=== PATIENT | female | born 1975 ===

== ENCOUNTER 2019-02-01 21:08 | Inpatient (IN) ==
[2019-02-01] MEDS ORDERED: ACETAMINOPHEN 325 MG TABLET PO PRN (23:49)
[2019-02-01] MEDS ORDERED: GLUCAGON 1 MG VIAL IM PRN (23:49)
[2019-02-02 00:50] LABS: Hematocrit 27.8 VOL% (35.7-47.0); Hemoglobin 8.6 GM/DL (12.0-16.0); Immature Granulocytes % 1.3 %; Immature Granulocytes Absolute 0.07 #; Lymphocytes # 0.2 10*3/uL (1.4-4.0); Lymphocytes % 3.3 % (21.3-54.2); Mean Corpuscular HGB Conc 30.9 GM/DL (32-36); Mean Corpuscular Hemoglobin 27 PG (27-34); Mean Corpuscular Volume 86.1 FL (87-102); Mean Platelet Volume 11.2 FL (9.6-12.0); Monocytes # 0.2 10*3/uL (0.11-0.8); Monocytes % 3.8 % (1.7-12.7); Neutrophils # 4.8 10*3/uL (1.4-7.4); Neutrophils % 91.6 % (38.7-73.9); Platelet Count 197 T/CUMM (130-400); Red Blood Count 3.23 MC/CUMM (3.8-5.5); Red Cell Distribution Width 17.9 % (9.3-17.3); White Blood Count 5.2 T/CUMM (4-12)
[2019-02-02 01:18] LABS: Band Neutrophils 1 % (0-10); Lymphocytes 4 % (20-55); Promyelocytes 1 %; Segmented Neutrophils 91 % (50-85); Total Cells Counted 100
[2019-02-02 01:20] LABS: Burr Cells 1+; Hypochromasia 1+; Ovalocytes 1+; Platelet Estimate Normal; Polychromasia Few
[2019-02-02 01:23] LABS: Alanine Aminotransferase 19 U/L (13-56); Albumin 2.9 G/DL (3.4-5.0); Alkaline Phosphatase 40 U/L (45-117); Aspartate Amino Transferase 16 U/L (0-37); Bilirubin,Total < 0.39 MG/DL (0.2-1.0); Blood Urea Nitrogen 68 MG/DL (7-18); Calcium 7.7 MG/DL (8.5-10.1); Glucose 96 MG/DL (74-106); Osmolality,Calculated 305.8 MOS/KG (273-304); Potassium 4.7 MMOL/L (3.5-5.1); Sodium 144 MMOL/L (136-145); Total Protein 6.6 G/DL (6.4-8.3)
[2019-02-02] MEDS: FUROSEMIDE 40 MG/4 ML VIAL IV SCH ×2 (03:10→08:43)
[2019-02-02] MEDS: SODIUM POLYSTYRENE SULFATE 15 GM/60 ML BOTTLE PO SCH ×2 (03:51→10:26)
[2019-02-02 04:47] LABS: Apearance,Urine CLEAR (Clear); Bacteria,Urine Occasional /HPF (Few); Bilirubin,Urine Negative (Negative); Blood, Urine Negative (Negative); Glucose,Urine (UA) 150 mg/dL (Negative); Ketones,Urine Negative (Negative); Mucus,Urine Occasional /LPF (Occasional); Nitrite,Urine Negative (Negative); Protein,Urine 100 MG/DL; RBC,Urine 1 /HPF (0-4); Squamous Epithelial Cell,Urine Occasional /HPF (0-10); Urine Color Straw (Yellow); Urine Urobilinogen < 2.0 EU/DL (0.2-1.0); WBC,Urine 3 /HPF (0-6)
[2019-02-02] MEDS: DEXTROSE 50% 25 GM/50 ML SYRINGE IV PRN ×8 (05:51→23:43)
[2019-02-02] MEDS: INSULIN REGULAR 100 UNIT/ML SUBCUT SCH ×3 (08:21→16:14)
[2019-02-02] MEDS: DEXTROSE 10% 500 ML IV SCH (10:21)
[2019-02-02 11:24] LABS: % Iron Saturation 5.1 % (18-50)
[2019-02-02] MEDS: metOLazone 5 MG TABLET PO SCH (11:57)
[2019-02-02] MEDS: FUROSEMIDE 100 MG/10 ML VIAL IV SCH (16:44)
[2019-02-02] MEDS: DEXTROSE IV SCH (19:43)
[2019-02-03] MEDS: DEXTROSE 50% 25 GM/50 ML SYRINGE IV PRN ×3 (03:31→15:50)
[2019-02-03 04:27] LABS: Basophils % 0.2 % (0.0-0.8); Eosinophils # 0.1 10*3/uL (0.0-0.87); Eosinophils % 1.6 % (0.00-10.9); Hematocrit 23.8 VOL% (35.7-47.0); Hemoglobin 7.2 GM/DL (12.0-16.0); Immature Granulocytes % 0.5 %; Immature Granulocytes Absolute 0.03 #; Lymphocytes # 0.5 10*3/uL (1.4-4.0); Lymphocytes % 8.8 % (21.3-54.2); Mean Corpuscular HGB Conc 30.3 GM/DL (32-36); Mean Corpuscular Hemoglobin 26 PG (27-34); Mean Corpuscular Volume 85.6 FL (87-102); Mean Platelet Volume 11.3 FL (9.6-12.0); Monocytes # 0.5 10*3/uL (0.11-0.8); Monocytes % 8.1 % (1.7-12.7); Neutrophils # 4.5 10*3/uL (1.4-7.4); Neutrophils % 80.8 % (38.7-73.9); Platelet Count 175 T/CUMM (130-400); Red Blood Count 2.78 MC/CUMM (3.8-5.5); Red Cell Distribution Width 18.4 % (9.3-17.3); White Blood Count 5.6 T/CUMM (4-12)
[2019-02-03 04:31] LABS: Calcium 6.9 MG/DL (8.5-10.1); Osmolality,Calculated 295.4 MOS/KG (273-304); Potassium 3.9 MMOL/L (3.5-5.1)
[2019-02-03] MEDS: metOLazone 5 MG TABLET PO SCH (09:09)
[2019-02-03] MEDS: FUROSEMIDE 100 MG/10 ML VIAL IV SCH ×2 (09:13→16:22)
[2019-02-03] MEDS: ASPIRIN EC 81 MG TABLET PO SCH (09:14)
[2019-02-03] MEDS: PANTOPRAZOLE 40 MG VIAL IV SCH ×2 (09:49→21:34)
[2019-02-03] MEDS: SODIUM BICARBONATE 650 MG TABLET PO SCH ×2 (09:49→21:35)
[2019-02-03] MEDS: ISOSORBIDE MONONITRATE 30 MG TABLET PO SCH (10:55)
[2019-02-03] MEDS: DEXTROSE 10% 500 ML IV SCH (15:05)
[2019-02-03] MEDS: DEXTROSE IV SCH (15:49)
[2019-02-03] MEDS: hydrALAZINE 25 MG TABLET PO SCH ×2 (16:22→21:34)
[2019-02-04 04:36] LABS: Basophils % 0.1 % (0.0-0.8); Eosinophils # 0.1 10*3/uL (0.0-0.87); Eosinophils % 1.3 % (0.00-10.9); Hemoglobin 8.6 GM/DL (12.0-16.0); Immature Granulocytes % 0.4 %; Immature Granulocytes Absolute 0.03 #; Lymphocytes # 0.5 10*3/uL (1.4-4.0); Lymphocytes % 6.8 % (21.3-54.2); Mean Corpuscular HGB Conc 27.9 GM/DL (32-36); Mean Corpuscular Hemoglobin 27 PG (27-34); Mean Corpuscular Volume 94.8 FL (87-102); Mean Platelet Volume 11.9 FL (9.6-12.0); Monocytes # 0.5 10*3/uL (0.11-0.8); Monocytes % 6.8 % (1.7-12.7); Neutrophils # 5.8 10*3/uL (1.4-7.4); Neutrophils % 84.6 % (38.7-73.9); Platelet Count 191 T/CUMM (130-400); Red Blood Count 3.25 MC/CUMM (3.8-5.5); Red Cell Distribution Width 19.8 % (9.3-17.3); White Blood Count 6.9 T/CUMM (4-12)
[2019-02-04 04:37] LABS: Hematocrit 30.8 VOL% (35.7-47.0)
[2019-02-04 04:40] LABS: Folate 2.6 NG/ML (5.4-24.0)
[2019-02-04 05:13] LABS: Hypochromasia Slight; Platelet Estimate Normal; Polychromasia Few
[2019-02-04 05:34] LABS: Calcium 6.8 MG/DL (8.5-10.1); Osmolality,Calculated 282.7 MOS/KG (273-304); Potassium 4.1 MMOL/L (3.5-5.1)
[2019-02-04] MEDS: DEXTROSE IV SCH (08:36)
[2019-02-04] MEDS: DEXTROSE 10% 500 ML IV SCH ×2 (08:54→12:17)
[2019-02-04] MEDS ORDERED: PROPOFOL 200 MG/20 ML VIAL IV ONE (09:00)
[2019-02-04] MEDS ORDERED: ETOMIDATE 20 MG/10 ML VIAL IV ONE (09:00)
[2019-02-04] MEDS ORDERED: LIDOCAINE 1% 5 ML VIAL ONE (09:00)
[2019-02-04] MEDS: ISOSORBIDE MONONITRATE 30 MG TABLET PO SCH (09:20)
[2019-02-04] MEDS: FUROSEMIDE 100 MG/10 ML VIAL IV SCH ×4 (09:20→15:18)
[2019-02-04] MEDS: hydrALAZINE 25 MG TABLET PO SCH ×3 (09:20→21:49)
[2019-02-04] MEDS ORDERED: MAGNESIUM SULF RIDER 2 GM in PREMIX 1 EACH IV ONE (10:00)
[2019-02-04] MEDS ORDERED: MAGNESIUM SULF RIDER 2 GM in PREMIX 1 EACH IV PRN (10:05)
[2019-02-04] MEDS ORDERED: MAGNESIUM SULF RIDER 4 GM in PREMIX 1 EACH IV PRN (10:05)
[2019-02-04] MEDS: SODIUM BICARBONATE 650 MG TABLET PO SCH ×4 (15:14→21:49)
[2019-02-04] MEDS: CARVEDILOL 6.25 MG TABLET PO SCH ×2 (15:15→21:49)
[2019-02-04] MEDS: ASPIRIN EC 81 MG TABLET PO SCH (15:15)
[2019-02-04] MEDS: PANTOPRAZOLE 40 MG VIAL IV SCH ×2 (15:15→21:48)
[2019-02-04] MEDS: metOLazone 5 MG TABLET PO SCH (15:20)
[2019-02-04] MEDS ORDERED: metOLazone 5 MG TABLET ONE (15:23)
[2019-02-04] MEDS ORDERED: metOLazone 5 MG TABLET PO SCH (21:00)
[2019-02-04] MEDS ORDERED: ROSUVASTATIN 20 MG TABLET PO SCH (21:00)
[2019-02-05 03:38] LABS: Basophils % 0.2 % (0.0-0.8); Eosinophils # 0.2 10*3/uL (0.0-0.87); Eosinophils % 2.7 % (0.00-10.9); Hematocrit 25.4 VOL% (35.7-47.0); Hemoglobin 7.9 GM/DL (12.0-16.0); Immature Granulocytes % 0.5 %; Immature Granulocytes Absolute 0.03 #; Lymphocytes # 0.6 10*3/uL (1.4-4.0); Lymphocytes % 9.2 % (21.3-54.2); Mean Corpuscular HGB Conc 31.1 GM/DL (32-36); Mean Corpuscular Hemoglobin 26 PG (27-34); Mean Corpuscular Volume 82.7 FL (87-102); Mean Platelet Volume 11.2 FL (9.6-12.0); Monocytes # 0.4 10*3/uL (0.11-0.8); Monocytes % 7.3 % (1.7-12.7); Neutrophils # 4.8 10*3/uL (1.4-7.4); Neutrophils % 80.1 % (38.7-73.9); Platelet Count 166 T/CUMM (130-400); Red Blood Count 3.07 MC/CUMM (3.8-5.5); Red Cell Distribution Width 17.8 % (9.3-17.3)
[2019-02-05 03:58] LABS: Calcium 6.8 MG/DL (8.5-10.1); Osmolality,Calculated 275.9 MOS/KG (273-304)
[2019-02-05 03:59] LABS: Risk Ratio 1.45; VLDL CHOLESTEROL 7.4 MG/DL
[2019-02-05] MEDS: DEXTROSE 10% 500 ML IV SCH ×2 (07:10→13:41)
[2019-02-05] MEDS: DEXTROSE IV SCH ×2 (07:10→18:18)
[2019-02-05] MEDS: hydrALAZINE 25 MG TABLET PO SCH ×3 (08:40→21:24)
[2019-02-05] MEDS: ISOSORBIDE MONONITRATE 30 MG TABLET PO SCH (08:40)
[2019-02-05] MEDS: CARVEDILOL 6.25 MG TABLET PO SCH ×2 (08:40→21:24)
[2019-02-05] MEDS: SODIUM BICARBONATE 650 MG TABLET PO SCH ×3 (08:40→21:25)
[2019-02-05] MEDS: PANTOPRAZOLE 40 MG VIAL IV SCH ×2 (08:41→21:24)
[2019-02-05] MEDS: FUROSEMIDE 100 MG/10 ML VIAL IV SCH ×2 (08:41→17:52)
[2019-02-05] MEDS: ASPIRIN EC 81 MG TABLET PO SCH (08:41)
[2019-02-05] MEDS: metOLazone 5 MG TABLET PO SCH ×2 (09:20→21:25)
[2019-02-05] MEDS ORDERED: BISACODYL 5 MG TABLET PO ONE (12:00)
[2019-02-05] MEDS ORDERED: POLYETHYLENE GLYCOL POWDER 255 GM BOTTLE PO ONE (16:10)
[2019-02-06] MEDS: DEXTROSE 10% 500 ML IV SCH (04:05)
[2019-02-06 04:16] LABS: Basophils % 0.2 % (0.0-0.8); Eosinophils # 0.2 10*3/uL (0.0-0.87); Hematocrit 23.6 VOL% (35.7-47.0); Hemoglobin 7.4 GM/DL (12.0-16.0); Immature Granulocytes % 0.3 %; Immature Granulocytes Absolute 0.02 #; Lymphocytes # 0.4 10*3/uL (1.4-4.0); Lymphocytes % 6.1 % (21.3-54.2); Mean Corpuscular HGB Conc 31.4 GM/DL (32-36); Mean Corpuscular Hemoglobin 26 PG (27-34); Mean Corpuscular Volume 82.8 FL (87-102); Mean Platelet Volume 11.3 FL (9.6-12.0); Monocytes # 0.4 10*3/uL (0.11-0.8); Monocytes % 6.3 % (1.7-12.7); Neutrophils % 84.1 % (38.7-73.9); Platelet Count 171 T/CUMM (130-400); Red Blood Count 2.85 MC/CUMM (3.8-5.5); Red Cell Distribution Width 17.2 % (9.3-17.3); White Blood Count 5.9 T/CUMM (4-12)
[2019-02-06 04:28] LABS: Calcium 6.8 MG/DL (8.5-10.1); Osmolality,Calculated 275.2 MOS/KG (273-304); Potassium 3.8 MMOL/L (3.5-5.1)
[2019-02-06 04:46] LABS: INR 1.2; PT Patient Result 13.4 SECS
[2019-02-06] MEDS ORDERED: LIDOCAINE 2% 5 ML VIAL ONE (09:00)
[2019-02-06] MEDS ORDERED: PROPOFOL 200 MG/20 ML VIAL IV ONE (09:00)
[2019-02-06] MEDS: FUROSEMIDE 100 MG/10 ML VIAL IV SCH (11:08)
[2019-02-06] MEDS: SODIUM BICARBONATE 650 MG TABLET PO SCH ×3 (11:09→21:09)
[2019-02-06] MEDS: CARVEDILOL 6.25 MG TABLET PO SCH ×2 (11:09→21:08)
[2019-02-06] MEDS: metOLazone 5 MG TABLET PO SCH (11:09)
[2019-02-06] MEDS: ISOSORBIDE MONONITRATE 30 MG TABLET PO SCH (11:09)
[2019-02-06] MEDS: hydrALAZINE 25 MG TABLET PO SCH ×3 (11:10→21:08)
[2019-02-06] MEDS: ASPIRIN EC 81 MG TABLET PO SCH (11:10)
[2019-02-06] MEDS ORDERED: ceFAZolin 1,000 MG in SYRINGE 1 EACH IV ONE (11:30)
[2019-02-06] MEDS ORDERED: GLUCAGON 1 MG VIAL IM PRN ×2 (13:19→17:56)
[2019-02-06] MEDS ORDERED: HEPARIN 5,000 UNIT/1 ML VIAL ONE (13:19)
[2019-02-06] MEDS ORDERED: LIDOCAINE 1% 20 ML VIAL ONE (13:19)
[2019-02-06] MEDS ORDERED: DEXTROSE 50% 25 GM/50 ML SYRINGE IV PRN ×2 (13:19→17:56)
[2019-02-06] MEDS ORDERED: ceFAZolin 1,000 MG VIAL ONE (14:05)
[2019-02-06] MEDS ORDERED: DEXTROSE 50% 25 GM/50 ML VIAL IV ONE (14:07)
[2019-02-06] MEDS ORDERED: SODIUM CHLORIDE 0.9% 500 ML IV ONE (14:10)
[2019-02-06] MEDS ORDERED: DEXTROSE 50% 25 GM/50 ML SYRINGE IV ONE (14:14)
[2019-02-06] MEDS ORDERED: MIDAZOLAM 2 MG/2 ML VIAL ONE (15:04)
[2019-02-06] MEDS ORDERED: fentaNYL 100 MCG/2 ML VIAL ONE (15:04)
[2019-02-06] MEDS ORDERED: KETAMINE 500 MG/10 ML VIAL ONE (15:05)
[2019-02-06] MEDS ORDERED: ACETAMINOPHEN 325 MG TABLET PO PRN (17:57)
[2019-02-06] MEDS: PANTOPRAZOLE 40 MG VIAL IV SCH (21:10)
[2019-02-07 05:10] LABS: Calcium 6.8 MG/DL (8.5-10.1); Osmolality,Calculated 270.8 MOS/KG (273-304); Potassium 4.1 MMOL/L (3.5-5.1)
[2019-02-07 05:35] LABS: Albumin 2.5 G/DL (3.4-5.0); Bilirubin,Total 0.5 MG/DL (0.2-1.0); Calcium 6.9 MG/DL (8.5-10.1); Osmolality,Calculated 270.6 MOS/KG (273-304); Potassium 4.2 MMOL/L (3.5-5.1); Total Protein 5.9 G/DL (6.4-8.3)
[2019-02-07 07:12] LABS: Basophils % 0.3 % (0.0-0.8); Eosinophils # 0.1 10*3/uL (0.0-0.87); Eosinophils % 1.6 % (0.00-10.9); Hematocrit 27.3 VOL% (35.7-47.0); Hemoglobin 8.3 GM/DL (12.0-16.0); Immature Granulocytes % 0.4 %; Immature Granulocytes Absolute 0.03 #; Lymphocytes # 0.5 10*3/uL (1.4-4.0); Lymphocytes % 6.6 % (21.3-54.2); Mean Corpuscular HGB Conc 30.4 GM/DL (32-36); Mean Corpuscular Hemoglobin 26 PG (27-34); Mean Corpuscular Volume 85.8 FL (87-102); Mean Platelet Volume 11.7 FL (9.6-12.0); Monocytes # 0.3 10*3/uL (0.11-0.8); Monocytes % 4.4 % (1.7-12.7); Neutrophils # 6.4 10*3/uL (1.4-7.4); Neutrophils % 86.7 % (38.7-73.9); Platelet Count 207 T/CUMM (130-400); Red Blood Count 3.18 MC/CUMM (3.8-5.5); Red Cell Distribution Width 17.7 % (9.3-17.3); White Blood Count 7.4 T/CUMM (4-12)
[2019-02-07 07:49] LABS: Hypochromasia 1+; Microcytosis 1+; Ovalocytes Few
[2019-02-07 07:50] LABS: Acanthocytes Few
[2019-02-07 07:52] LABS: Platelet Estimate Normal
[2019-02-07] MEDS: ISOSORBIDE MONONITRATE 30 MG TABLET PO SCH (08:55)
[2019-02-07] MEDS: CARVEDILOL 6.25 MG TABLET PO SCH ×2 (08:55→16:13)
[2019-02-07] MEDS: ASPIRIN EC 81 MG TABLET PO SCH (08:55)
[2019-02-07] MEDS: hydrALAZINE 25 MG TABLET PO SCH ×3 (08:55→20:40)
[2019-02-07] MEDS: SODIUM BICARBONATE 650 MG TABLET PO SCH ×3 (08:56→20:40)
[2019-02-07] MEDS: PANTOPRAZOLE 40 MG VIAL IV SCH (08:56)
[2019-02-07 10:27] LABS: Free T4 (Free Thyroxine) 0.71 NG/DL (0.76-1.46)
[2019-02-07] MEDS ORDERED: EPOETIN ALFA 2,000 UNIT/1 ML VIAL SUBCUT PRN (10:53)
[2019-02-07] MEDS ORDERED: IRON SUCROSE 100 MG/5 ML VIAL IV SCH (11:00)
[2019-02-07] MEDS ORDERED: HEPARIN 10,000 UNIT/10 ML VIAL IV PRN (11:44)
[2019-02-07 12:28] LABS: Hepatitis A Ab IgM Quant 0.12 Index; Hepatitis A Ab IgM Result Negative (Negative); Hepatitis B Core IgM Quant 0.15 Index; Hepatitis B Core IgM Result Negative (Negative); Hepatitis B Surface Ag Quant < 0.10 Index; Hepatitis B Surface Ag Result Negative (Negative); Hepatitis C Virus Ab Quant < 0.02 Index; Hepatitis C Virus Ab Result Negative (Negative)
[2019-02-08 04:33] LABS: Basophils % 0.2 % (0.0-0.8); Eosinophils # 0.1 10*3/uL (0.0-0.87); Eosinophils % 1.3 % (0.00-10.9); Hematocrit 20.5 VOL% (35.7-47.0); Hemoglobin 6.6 GM/DL (12.0-16.0); Immature Granulocytes % 0.4 %; Immature Granulocytes Absolute 0.02 #; Lymphocytes # 0.4 10*3/uL (1.4-4.0); Lymphocytes % 8.3 % (21.3-54.2); Mean Corpuscular HGB Conc 32.2 GM/DL (32-36); Mean Corpuscular Hemoglobin 26 PG (27-34); Mean Corpuscular Volume 81.3 FL (87-102); Mean Platelet Volume 10.9 FL (9.6-12.0); Monocytes # 0.4 10*3/uL (0.11-0.8); Monocytes % 8.7 % (1.7-12.7); Neutrophils # 3.8 10*3/uL (1.4-7.4); Neutrophils % 81.1 % (38.7-73.9); Platelet Count 129 T/CUMM (130-400); Red Blood Count 2.52 MC/CUMM (3.8-5.5); Red Cell Distribution Width 17.6 % (9.3-17.3); White Blood Count 4.7 T/CUMM (4-12)
[2019-02-08 05:31] LABS: Calcium 6.5 MG/DL (8.5-10.1); Osmolality,Calculated 276.8 MOS/KG (273-304); Potassium 3.9 MMOL/L (3.5-5.1)
[2019-02-08] MEDS: LEVOTHYROXINE 25 MCG TABLET PO SCH (05:52)
[2019-02-08] MEDS ORDERED: CALCIUM GLUCONATE 2,000 MG in SODIUM CHLORIDE 0.9% 100 ML IV ONE (08:00)
[2019-02-08] MEDS: ASPIRIN EC 81 MG TABLET PO SCH (12:07)
[2019-02-08] MEDS: ISOSORBIDE MONONITRATE 30 MG TABLET PO SCH (12:08)
[2019-02-08] MEDS: PANTOPRAZOLE 40 MG TABLET PO SCH (12:08)
[2019-02-08] MEDS: SODIUM BICARBONATE 650 MG TABLET PO SCH ×3 (12:08→20:42)
[2019-02-08] MEDS: hydrALAZINE 25 MG TABLET PO SCH ×3 (12:08→20:43)
[2019-02-08] MEDS: CALCIUM ACETATE 667 MG CAPSULE PO SCH ×3 (12:08→16:35)
[2019-02-08] MEDS: CARVEDILOL 6.25 MG TABLET PO SCH ×2 (12:09→18:28)
[2019-02-09 05:00] LABS: Basophils % 0.2 % (0.0-0.8); Eosinophils # 0.1 10*3/uL (0.0-0.87); Eosinophils % 2.3 % (0.00-10.9); Hemoglobin 9.4 GM/DL (12.0-16.0); Immature Granulocytes % 0.4 %; Immature Granulocytes Absolute 0.02 #; Lymphocytes # 0.5 10*3/uL (1.4-4.0); Lymphocytes % 9.6 % (21.3-54.2); Mean Corpuscular HGB Conc 32.4 GM/DL (32-36); Mean Corpuscular Hemoglobin 27 PG (27-34); Mean Corpuscular Volume 82.9 FL (87-102); Mean Platelet Volume 10.8 FL (9.6-12.0); Monocytes # 0.5 10*3/uL (0.11-0.8); Monocytes % 10.2 % (1.7-12.7); Neutrophils % 77.3 % (38.7-73.9); Platelet Count 125 T/CUMM (130-400); Red Cell Distribution Width 16.7 % (9.3-17.3); White Blood Count 5.2 T/CUMM (4-12)
[2019-02-09 05:34] LABS: Albumin 2.3 G/DL (3.4-5.0); Bilirubin,Total 0.4 MG/DL (0.2-1.0); Calcium 7.5 MG/DL (8.5-10.1); Osmolality,Calculated 273.1 MOS/KG (273-304); Potassium 3.7 MMOL/L (3.5-5.1); Total Protein 5.8 G/DL (6.4-8.3)
[2019-02-09] MEDS: LEVOTHYROXINE 25 MCG TABLET PO SCH (05:45)
[2019-02-09] MEDS: ISOSORBIDE MONONITRATE 30 MG TABLET PO SCH (08:14)
[2019-02-09] MEDS: hydrALAZINE 25 MG TABLET PO SCH ×3 (08:14→20:33)
[2019-02-09] MEDS: CALCIUM ACETATE 667 MG CAPSULE PO SCH ×3 (08:14→16:41)
[2019-02-09] MEDS: SODIUM BICARBONATE 650 MG TABLET PO SCH ×3 (08:14→20:33)
[2019-02-09] MEDS: ASPIRIN EC 81 MG TABLET PO SCH (08:14)
[2019-02-09] MEDS: CARVEDILOL 6.25 MG TABLET PO SCH ×2 (08:14→16:41)
[2019-02-09] MEDS: PANTOPRAZOLE 40 MG TABLET PO SCH (08:15)
[2019-02-10 06:08] LABS: Basophils % 0.4 % (0.0-0.8); Eosinophils # 0.2 10*3/uL (0.0-0.87); Eosinophils % 3.7 % (0.00-10.9); Hematocrit 29.7 VOL% (35.7-47.0); Hemoglobin 9.6 GM/DL (12.0-16.0); Immature Granulocytes % 0.4 %; Immature Granulocytes Absolute 0.02 #; Lymphocytes # 0.6 10*3/uL (1.4-4.0); Lymphocytes % 11.5 % (21.3-54.2); Mean Corpuscular HGB Conc 32.3 GM/DL (32-36); Mean Corpuscular Hemoglobin 27 PG (27-34); Mean Corpuscular Volume 83.7 FL (87-102); Mean Platelet Volume 10.5 FL (9.6-12.0); Monocytes # 0.6 10*3/uL (0.11-0.8); Monocytes % 10.1 % (1.7-12.7); Neutrophils % 73.9 % (38.7-73.9); Platelet Count 135 T/CUMM (130-400); Red Blood Count 3.55 MC/CUMM (3.8-5.5); Red Cell Distribution Width 16.8 % (9.3-17.3); White Blood Count 5.5 T/CUMM (4-12)
[2019-02-10] MEDS: LEVOTHYROXINE 25 MCG TABLET PO SCH (06:08)
[2019-02-10 06:28] LABS: Albumin 2.3 G/DL (3.4-5.0); Bilirubin,Total 0.7 MG/DL (0.2-1.0); Calcium 7.6 MG/DL (8.5-10.1); Osmolality,Calculated 277.2 MOS/KG (273-304); Potassium 3.8 MMOL/L (3.5-5.1); Total Protein 5.9 G/DL (6.4-8.3)
[2019-02-10] MEDS: CARVEDILOL 6.25 MG TABLET PO SCH ×2 (09:47→16:27)
[2019-02-10] MEDS: ISOSORBIDE MONONITRATE 30 MG TABLET PO SCH (09:47)
[2019-02-10] MEDS: SODIUM BICARBONATE 650 MG TABLET PO SCH ×3 (09:47→20:31)
[2019-02-10] MEDS: ASPIRIN EC 81 MG TABLET PO SCH (09:47)
[2019-02-10] MEDS: hydrALAZINE 25 MG TABLET PO SCH (09:48)
[2019-02-10] MEDS: CALCIUM ACETATE 667 MG CAPSULE PO SCH ×3 (09:48→16:26)
[2019-02-10] MEDS: PANTOPRAZOLE 40 MG TABLET PO SCH (09:48)
[2019-02-11] MEDS: LEVOTHYROXINE 25 MCG TABLET PO SCH (05:33)
[2019-02-11 05:35] LABS: Calcium 7.6 MG/DL (8.5-10.1); Osmolality,Calculated 278.8 MOS/KG (273-304); Potassium 4.1 MMOL/L (3.5-5.1)
[2019-02-11 05:53] LABS: Basophils % 0.4 % (0.0-0.8); Eosinophils # 0.2 10*3/uL (0.0-0.87); Eosinophils % 4.5 % (0.00-10.9); Hematocrit 29.4 VOL% (35.7-47.0); Hemoglobin 9.3 GM/DL (12.0-16.0); Immature Granulocytes % 0.4 %; Immature Granulocytes Absolute 0.02 #; Lymphocytes # 0.6 10*3/uL (1.4-4.0); Lymphocytes % 10.6 % (21.3-54.2); Mean Corpuscular HGB Conc 31.6 GM/DL (32-36); Mean Corpuscular Hemoglobin 26 PG (27-34); Mean Corpuscular Volume 83.5 FL (87-102); Mean Platelet Volume 11.5 FL (9.6-12.0); Monocytes # 0.5 10*3/uL (0.11-0.8); Neutrophils % 75.1 % (38.7-73.9); Platelet Count 142 T/CUMM (130-400); Red Blood Count 3.52 MC/CUMM (3.8-5.5); Red Cell Distribution Width 16.9 % (9.3-17.3); White Blood Count 5.4 T/CUMM (4-12)
[2019-02-11] MEDS: PANTOPRAZOLE 40 MG TABLET PO SCH (08:21)
[2019-02-11] MEDS: SODIUM BICARBONATE 650 MG TABLET PO SCH ×2 (08:21→14:54)
[2019-02-11] MEDS: ISOSORBIDE MONONITRATE 30 MG TABLET PO SCH (08:21)
[2019-02-11] MEDS: CALCIUM ACETATE 667 MG CAPSULE PO SCH ×3 (08:21→16:54)
[2019-02-11] MEDS: ASPIRIN EC 81 MG TABLET PO SCH (08:21)
[2019-02-11] MEDS: CARVEDILOL 6.25 MG TABLET PO SCH ×2 (08:21→16:54)
[2019-02-11 15:54] VITALS: BP 166/76
== END 2019-02-11 18:18 | disposition home or self-care (01) | DRG 468 ==
LOC: SUATTDRO 22:30 → N.ICU 22:30 → N.2E 02-02 00:17 → N.CC 02-02 19:14 → N.2E 02-06 15:49
PROVIDERS: ADMIT Internal Medicine; ATTEND Internal Medicine

== ENCOUNTER 2019-03-06 10:37 | Observation (INO) ==
[2019-03-06 11:17] LABS: Basophils % 0.6 % (0.0-0.8); Eosinophils # 0.2 10*3/uL (0.0-0.87); Eosinophils % 3.7 % (0.00-10.9); Hematocrit 29.6 VOL% (35.7-47.0); Immature Granulocytes % 0.2 %; Immature Granulocytes Absolute 0.01 #; Lymphocytes # 0.6 10*3/uL (1.4-4.0); Lymphocytes % 10.5 % (21.3-54.2); Mean Corpuscular HGB Conc 30.4 GM/DL (32-36); Mean Corpuscular Volume 88.9 FL (87-102); Mean Platelet Volume 10.5 FL (9.6-12.0); Monocytes % 6.3 % (1.7-12.7); Neutrophils % 78.7 % (38.7-73.9); Platelet Count 211 T/CUMM (130-400); Red Blood Count 3.33 MC/CUMM (3.8-5.5); Red Cell Distribution Width 17.2 % (9.3-17.3); White Blood Count 5.4 T/CUMM (4-12)
[2019-03-06 11:35] LABS: Calcium 8.9 MG/DL (8.5-10.1); Osmolality,Calculated 303.4 MOS/KG (273-304)
[2019-03-06] MEDS ORDERED: ACETAMINOPHEN 325 MG TABLET PO PRN (13:38)
[2019-03-06 14:11] LABS: Risk Ratio 2.43; Thyroid Stimulating Hormone 9.69 uIU/ml (0.358-3.74); VLDL CHOLESTEROL 16.8 MG/DL
[2019-03-06] MEDS ORDERED: DEXTROSE 50% 25 GM/50 ML SYRINGE IV PRN (14:11)
[2019-03-06] MEDS ORDERED: GLUCAGON 1 MG VIAL IM PRN (14:11)
[2019-03-06 14:42] LABS: Apearance,Urine CLEAR (Clear); Bilirubin,Urine Negative (Negative); Blood, Urine Negative (Negative); Glucose,Urine (UA) 50 mg/dL (Negative); Ketones,Urine Negative (Negative); Mucus,Urine Occasional /LPF (Occasional); Nitrite,Urine Negative (Negative); Protein,Urine >=500 MG/DL; RBC,Urine 3 /HPF (0-4); Squamous Epithelial Cell,Urine Occasional /HPF (0-10); Urine Color Yellow (Yellow); Urine Specific Gravity 1.011 (1.001-1.035); Urine Urobilinogen < 2.0 EU/DL (0.2-1.0); WBC,Urine 13 /HPF (0-6)
[2019-03-06] MEDS ORDERED: EPOETIN ALFA 2,000 UNIT/1 ML VIAL SUBCUT PRN (15:49)
[2019-03-06] MEDS ORDERED: HEPARIN 10,000 UNIT/10 ML VIAL IV PRN (15:49)
[2019-03-06] MEDS ORDERED: FUROSEMIDE 40 MG/4 ML VIAL IV STA (15:52)
[2019-03-06] MEDS ORDERED: ALBUTEROL/IPRATROPIUM 3 ML NEB RESP TX PRN (15:52)
[2019-03-06] MEDS ORDERED: SODIUM POLYSTYRENE SULFATE 15 GM/60 ML BOTTLE PO STA (15:53)
[2019-03-06 16:42] LABS: CKMB % 7.3 %; Troponin I 0.042 NG/ML (0.00-0.045)
[2019-03-06] MEDS: CALCIUM ACETATE 667 MG CAPSULE PO SCH (18:00)
[2019-03-06] MEDS: CARVEDILOL 6.25 MG TABLET PO SCH (18:00)
[2019-03-06] MEDS: INSULIN LISPRO 100 UNIT/ML SUBCUT SCH ×2 (19:54→21:05)
[2019-03-06] MEDS: SODIUM BICARBONATE 650 MG TABLET PO SCH (21:04)
[2019-03-06] MEDS: FERROUS SULFATE 325 MG TABLET PO SCH (21:05)
[2019-03-06] MEDS: hydrALAZINE 20 MG/1 ML VIAL IV PRN (23:38)
[2019-03-07 05:55] LABS: Basophils % 0.8 % (0.0-0.8); Eosinophils # 0.2 10*3/uL (0.0-0.87); Eosinophils % 3.5 % (0.00-10.9); Hematocrit 28.2 VOL% (35.7-47.0); Hemoglobin 8.7 GM/DL (12.0-16.0); Immature Granulocytes % 0.2 %; Immature Granulocytes Absolute 0.01 #; Lymphocytes # 0.6 10*3/uL (1.4-4.0); Lymphocytes % 11.8 % (21.3-54.2); Mean Corpuscular HGB Conc 30.9 GM/DL (32-36); Mean Corpuscular Volume 88.1 FL (87-102); Mean Platelet Volume 11.1 FL (9.6-12.0); Monocytes % 6.4 % (1.7-12.7); Neutrophils % 77.3 % (38.7-73.9); Platelet Count 199 T/CUMM (130-400); Red Cell Distribution Width 17.2 % (9.3-17.3); White Blood Count 4.8 T/CUMM (4-12)
[2019-03-07 06:11] LABS: Calcium 8.7 MG/DL (8.5-10.1); Osmolality,Calculated 305.1 MOS/KG (273-304)
[2019-03-07 06:17] LABS: CKMB % 7.5 %
[2019-03-07] MEDS: hydrALAZINE 20 MG/1 ML VIAL IV PRN ×2 (06:26→12:31)
[2019-03-07] MEDS ORDERED: LEVOTHYROXINE 50 MCG TABLET PO SCH ×2 (07:00→10:29)
[2019-03-07] MEDS ORDERED: PANTOPRAZOLE 40 MG TABLET PO SCH (09:00)
[2019-03-07] MEDS ORDERED: ISOSORBIDE MONONITRATE 30 MG TABLET PO SCH (09:00)
[2019-03-07] MEDS ORDERED: ASPIRIN EC 81 MG TABLET PO SCH (09:00)
[2019-03-07] MEDS: FERROUS SULFATE 325 MG TABLET PO SCH (09:31)
[2019-03-07] MEDS: SODIUM BICARBONATE 650 MG TABLET PO SCH (09:31)
[2019-03-07] MEDS: CALCIUM ACETATE 667 MG CAPSULE PO SCH ×3 (09:31→18:11)
[2019-03-07] MEDS: CARVEDILOL 6.25 MG TABLET PO SCH ×2 (09:31→18:11)
[2019-03-07] MEDS ORDERED: IRON SUCROSE 100 MG/5 ML VIAL IV SCH (10:30)
[2019-03-07] MEDS: INSULIN LISPRO 100 UNIT/ML SUBCUT SCH ×3 (10:47→18:11)
[2019-03-07 10:55] LABS: CKMB % 6.8 %
[2019-03-07 10:56] LABS: Troponin I 0.056 NG/ML (0.00-0.045)
[2019-03-07 12:23] VITALS: BP 179/94
[2019-03-08 05:13] LABS: Troponin I 0.057 NG/ML (0.00-0.045)
== END 2019-03-07 18:44 | disposition home or self-care (01) ==
LOC: EDBD → EDUNIT# → N.ED 10:37 → N.EDINP 10:37 → N.5E 17:05
PROVIDERS: ADMIT Internal Medicine; ATTEND Internal Medicine

== ENCOUNTER 2020-10-07 21:09 | Observation (INO) ==
[2020-10-08] MEDS ORDERED: INFLUENZA VIRUS VACCINE 0.5 ML SYRINGE IM ONE (03:42)
[2020-10-08] MEDS ORDERED: GLUCAGON 1 MG VIAL IM PRN (03:48)
[2020-10-08] MEDS ORDERED: ACETAMINOPHEN 325 MG TABLET PO PRN (03:48)
[2020-10-08] MEDS ORDERED: ONDANSETRON 4 MG/2 ML VIAL IV PRN (03:48)
[2020-10-08] MEDS ORDERED: DEXTROSE 50% 25 GM/50 ML VIAL IV PRN (03:48)
[2020-10-08] MEDS ORDERED: EPOETIN ALFA 2,000 UNIT/1 ML VIAL SUBCUT PRN (03:58)
[2020-10-08] MEDS ORDERED: AZITHROMYCIN INJ 500 MG in SODIUM CHLORIDE 0.9% 250 ML IV SCH (04:00)
[2020-10-08] MEDS: cefTRIAXone 1,000 MG in SYRINGE 1 EACH IV SCH (04:25)
[2020-10-08] MEDS ORDERED: HEPARIN 5,000 UNIT/1 ML VIAL IV PRN (04:44)
[2020-10-08] MEDS: LEVOTHYROXINE 50 MCG TABLET PO SCH (06:11)
[2020-10-08 06:51] LABS: Basophils % 0.4 % (0.0-0.8); Eosinophils # 0.1 10*3/uL (0.0-0.87); Eosinophils % 1.7 % (0.00-10.9); Immature Granulocytes % 0.8 %; Immature Granulocytes Absolute 0.04 #; Lymphocytes # 0.6 10*3/uL (1.4-4.0); Lymphocytes % 12.3 % (21.3-54.2); Mean Corpuscular HGB Conc 32.9 GM/DL (32-36); Mean Corpuscular Volume 97.6 FL (87-102); Mean Platelet Volume 10.4 FL (9.6-12.0); Monocytes % 6.4 % (1.7-12.7); Neutrophils % 78.4 % (38.7-73.9); Platelet Count 179 T/CUMM (130-400); Red Blood Count 1.65 MC/CUMM (3.8-5.5); Red Cell Distribution Width 13.2 % (9.3-17.3); White Blood Count 5.2 T/CUMM (4-12)
[2020-10-08 07:02] LABS: Hemoglobin 5.3 GM/DL (12.0-16.0)
[2020-10-08 07:03] LABS: Hematocrit 16.1 VOL% (35.7-47.0)
[2020-10-08 07:16] LABS: Alanine Aminotransferase 16 U/L (13-56); Albumin 2.5 G/DL (3.4-5.0); Alkaline Phosphatase 37 U/L (45-117); Aspartate Amino Transferase 8 U/L (0-37); Bilirubin,Total < 0.39 MG/DL (0.2-1.0); Blood Urea Nitrogen 113 MG/DL (7-18); Calcium 7.6 MG/DL (8.5-10.1); Estimated Glom Filtration Rate 3 ML/MIN; Glucose 68 MG/DL (74-106); Total Protein 5.7 G/DL (6.4-8.3)
[2020-10-08] MEDS: FERROUS SULFATE 325 MG TABLET PO SCH ×3 (09:03→20:35)
[2020-10-08] MEDS: ASPIRIN EC 81 MG TABLET PO SCH (09:03)
[2020-10-08] MEDS: PANTOPRAZOLE 40 MG TABLET PO SCH (09:04)
[2020-10-08] MEDS: AZITHROMYCIN 250 MG TABLET PO SCH (09:04)
[2020-10-08] MEDS: hydrALAZINE 25 MG TABLET PO SCH ×3 (09:06→20:35)
[2020-10-08] MEDS: ISOSORBIDE MONONITRATE 30 MG TABLET PO SCH (09:06)
[2020-10-08] MEDS: CALCIUM ACETATE 667 MG CAPSULE PO SCH ×3 (09:09→17:00)
[2020-10-08] MEDS: SODIUM BICARBONATE 650 MG TABLET PO SCH ×3 (09:10→20:35)
[2020-10-08] MEDS: carvediloL 6.25 MG TABLET PO SCH (09:11)
[2020-10-08 12:11] LABS: Hepatitis B Surface Ag Quant < 0.10 Index; Hepatitis B Surface Ag Result Negative (Negative)
[2020-10-08] MEDS ORDERED: IRON SUCROSE 100 MG/5 ML VIAL IV SCH (17:00)
[2020-10-09] MEDS: cefTRIAXone 1,000 MG in SYRINGE 1 EACH IV SCH (03:51)
[2020-10-09 06:01] LABS: Basophils % 0.2 % (0.0-0.8); Eosinophils # 0.1 10*3/uL (0.0-0.87); Eosinophils % 2.4 % (0.00-10.9); Immature Granulocytes % 0.7 %; Immature Granulocytes Absolute 0.03 #; Lymphocytes # 0.7 10*3/uL (1.4-4.0); Lymphocytes % 15.3 % (21.3-54.2); Mean Corpuscular HGB Conc 33.8 GM/DL (32-36); Mean Corpuscular Volume 94.5 FL (87-102); Mean Platelet Volume 10.6 FL (9.6-12.0); Monocytes % 7.8 % (1.7-12.7); Neutrophils % 73.6 % (38.7-73.9); Platelet Count 174 T/CUMM (130-400); Red Blood Count 1.63 MC/CUMM (3.8-5.5); Red Cell Distribution Width 13.2 % (9.3-17.3); White Blood Count 4.5 T/CUMM (4-12)
[2020-10-09 06:04] LABS: Hemoglobin 5.2 GM/DL (12.0-16.0)
[2020-10-09 06:05] LABS: Hematocrit 15.4 VOL% (35.7-47.0)
[2020-10-09 06:15] LABS: Calcium 7.6 MG/DL (8.5-10.1)
[2020-10-09 06:21] LABS: Uric Acid 5.3 MG/DL (2.6-6.0)
[2020-10-09 06:26] LABS: % Iron Saturation 24.3 % (18-50); Ferritin 252.3 ng/ml (8-252)
[2020-10-09 06:29] LABS: Folate 1.6 NG/ML (5.4-24.0)
[2020-10-09] MEDS: LEVOTHYROXINE 50 MCG TABLET PO SCH (07:23)
[2020-10-09] MEDS: CALCIUM ACETATE 667 MG CAPSULE PO SCH ×2 (09:12→12:24)
[2020-10-09] MEDS: SODIUM BICARBONATE 650 MG TABLET PO SCH ×3 (09:12→21:38)
[2020-10-09] MEDS: ASPIRIN EC 81 MG TABLET PO SCH (09:13)
[2020-10-09] MEDS: AZITHROMYCIN 250 MG TABLET PO SCH (09:13)
[2020-10-09] MEDS: PANTOPRAZOLE 40 MG TABLET PO SCH (09:13)
[2020-10-09] MEDS: ISOSORBIDE MONONITRATE 30 MG TABLET PO SCH (09:13)
[2020-10-09] MEDS: carvediloL 6.25 MG TABLET PO SCH (09:14)
[2020-10-09] MEDS: FERROUS SULFATE 325 MG TABLET PO SCH ×3 (09:14→21:38)
[2020-10-09] MEDS: hydrALAZINE 25 MG TABLET PO SCH ×3 (09:16→21:38)
[2020-10-09] MEDS ORDERED: SODIUM CHLORIDE 0.9% 1,000 ML IV PRN ×2 (10:03→10:04)
[2020-10-10] MEDS: cefTRIAXone 1,000 MG in SYRINGE 1 EACH IV SCH (05:55)
[2020-10-10 05:58] LABS: Basophils % 0.4 % (0.0-0.8); Eosinophils # 0.1 10*3/uL (0.0-0.87); Eosinophils % 2.8 % (0.00-10.9); Hematocrit 26.7 VOL% (35.7-47.0); Immature Granulocytes % 0.4 %; Immature Granulocytes Absolute 0.02 #; Lymphocytes # 0.8 10*3/uL (1.4-4.0); Lymphocytes % 16.5 % (21.3-54.2); Mean Corpuscular HGB Conc 34.8 GM/DL (32-36); Mean Corpuscular Volume 89.9 FL (87-102); Mean Platelet Volume 10.5 FL (9.6-12.0); Neutrophils % 71.9 % (38.7-73.9); Platelet Count 184 T/CUMM (130-400); Red Cell Distribution Width 14.5 % (9.3-17.3)
[2020-10-10] MEDS: LEVOTHYROXINE 50 MCG TABLET PO SCH (06:05)
[2020-10-10 06:19] LABS: Hemoglobin 9.3 GM/DL (12.0-16.0); Red Blood Count 2.97 MC/CUMM (3.8-5.5)
[2020-10-10 06:24] LABS: Calcium 7.8 MG/DL (8.5-10.1); Osmolality,Calculated 280.7 MOS/KG (273-304)
[2020-10-10] MEDS: CALCIUM ACETATE 667 MG CAPSULE PO SCH ×3 (08:16→12:02)
[2020-10-10] MEDS: ISOSORBIDE MONONITRATE 30 MG TABLET PO SCH (08:18)
[2020-10-10] MEDS: hydrALAZINE 25 MG TABLET PO SCH (08:18)
[2020-10-10] MEDS: PANTOPRAZOLE 40 MG TABLET PO SCH (08:18)
[2020-10-10] MEDS: carvediloL 6.25 MG TABLET PO SCH (08:18)
[2020-10-10] MEDS: ASPIRIN EC 81 MG TABLET PO SCH (08:18)
[2020-10-10] MEDS: AZITHROMYCIN 250 MG TABLET PO SCH (08:18)
[2020-10-10] MEDS: FERROUS SULFATE 325 MG TABLET PO SCH (08:19)
[2020-10-10] MEDS ORDERED: cloNIDine 0.1 MG TABLET PO ONE (08:46)
[2020-10-10] MEDS ORDERED: amLODIPine 5 MG TABLET PO SCH (09:00)
[2020-10-10] MEDS ORDERED: CYANOCOBALAMIN 1000 MCG/1 ML VIAL IM SCH (09:00)
[2020-10-10] MEDS ORDERED: FOLIC ACID 1 MG TABLET PO SCH (09:00)
[2020-10-10] MEDS: SODIUM BICARBONATE 650 MG TABLET PO SCH (10:50)
[2020-10-10 11:53] VITALS: BP 154/62
== END 2020-10-10 15:00 | disposition home or self-care (01) ==
LOC: N.3E → SUATTDRO 10-08 02:48
PROVIDERS: ADMIT Internal Medicine; ATTEND Emergency Medicine